=== PATIENT | female | born 1955 | race Hispanic/Latino ===

== ENCOUNTER 2018-10-23 19:48 | Observation (INO) | payer OTHER ==
[2018-10-23 20:14] VITALS: BMI 22.3
[2018-10-23 20:45] LABS: Urine Appearance CLEAR; Urine Bilirubin NEGATIVE (NEG); Urine Blood NEGATIVE (NEG); Urine Color YELLOW; Urine Glucose NEGATIVE (NEG); Urine Microscopic Reflex ORDER UMIC; Urine Protein NEGATIVE (NEG); Urine Specific Gravity 1.015 (1.005-1.030); Urine Urobilinogen 0.2 mg/dL (0.2-1.0)
[2018-10-23 20:54] LABS: Urine Bacteria NONE SEEN /HPF (<20); Urine Culture Reflex Order REFLEXED; Urine RBC NONE SEEN /HPF (NONE SEEN)
--- NOTE | 2018-10-23 21:06 | RAD REPORT ---
EXAM DESCRIPTION: Lillian Barone (2 Views)10/23/2018 9:00 pm CLINICAL HISTORY: Chest pain COMPARISON: 2007 FINDINGS: The lungs appear clear of acute infiltrate. The heart is normal size IMPRESSION: No acute abnormalities displayed
[2018-10-23 21:26] LABS: Absolute Monocytes 0.8 K/uL (0.1-1.3); Absolute Neutrophil 5.6 K/uL (1.8-8.0); Basophils % 0.7 % (0-1.3); Eosinophils % 0.9 % (0-4.4); Hematocrit 37.2 % (36.0-45.0); Lymphocytes % 23.4 % (15.3-44.8); Monocytes % 9.1 % (3.3-12.3); RBC Red Blood Cell Count 3.98 M/uL (3.86-4.86)
[2018-10-23 21:45] LABS: BUN Blood Urea Nitrogen 19 mg/dL (7-18); Bicarbonate 28 mmol/L (21-32); CKMB Creatine Kinase MB 1.3 ng/mL (0.3-3.6); Creatine Phosphokinase 55 U/L (26-192); Glucose Level 103 mg/dL (74-106); Magnesium 2.3 mg/dL (1.8-2.4); Potassium 3.5 mmol/L (3.5-5.1); Sodium Level 144 mmol/L (136-145); Troponin I < 0.02 ng/mL (0.0-0.045)
[2018-10-23] MEDS ORDERED: ASPIRIN EC 81 MG TAB PO ONE (23:00)
[2018-10-24] MEDS ORDERED: NA CHLORIDE 0.9% 250 ML ONE (02:48)
[2018-10-24] MEDS ORDERED: KCL 20 MEQ/100 mL IVPB 20 MEQ/100 ML BAG IV SCH (03:00)
[2018-10-24 05:20] VITALS: O2SAT 98
--- NOTE | 2018-10-24 08:05 | HP ---
Date of Admission: 10/23/2018 Chief Complaint: Chest pain and left arm pain. History Of Present Illness: This is a 63-year-old female patient who came in to see me today with co mplaints of some chest pain and left arm pain. The patient has gastroesophageal reflux disease as we ll as some neuropathy problem and she has appointment to see Dr. Castilol next week on Sunday, and she has seen him before and this will be followup appointment. She also has appointment to see neurologbhupendra abdi next month. Meanwhile, she comes to our office today and reports that she is having this vague ch est discomfort, it happened once and this is in left upper anterior chest. She is also describing kamara ving some achiness in her left arm and left forearm. This is intermittent and this achiness started after she saw me on October 17, 2018. She is feeling weak and tired and feels like she gets exhaust ed with any activity. After I evaluated her, decision was made to admit her to the hospital. When s he saw me on October 17, 2018, at that time, she informed me that medication that I gave her which w as Carafate to help with her acid reflux problems, she stopped taking it because at one time she had 1 episode of vomiting and she was just having this generalized weakness feeling and she thought that that was a side effect of this medication, so she stopped taking it. Since she saw me on October 17, she has decided to get back on that medication and she feels like the medication has started to h elp her with her acid reflux feeling. She had also stopped her levothyroxine because of her generali zed weakness feeling that she has been having lately and this is something that she decided to do kenzie t on basis of what her daughter told her after her daughter read up something on [employer] and decided t hat her weakness was because of levothyroxine. So, once again, after I talked to her on September t, she has restarted her levothyroxine. She had CBC, chemistry profile, B12, folic acid, TSH, all th e blood work was done on an outpatient basis on 10/18/2018, including lipid profile and her potassium was slightly low at 3.4, TSH slightly high at 5.65. Otherwise, the rest of the blood work was unrem arkable. Allergies: TO CODEINE CAUSING PALPITATION; OMEPRAZOLE CAUSING WEAKNESS AND NUMBNESS; PENICILLIN, DET AILS UNKNOWN. Medications: Atorvastatin 20 mg daily; levothyroxine 100 mcg daily; losartan/HCTZ 100/12.5 p.o. kenisha y; ranitidine 150 mg 2 times a day; vitamin B12 1000 mcg daily, and as of today, I have told her to t lina 1000 mcg every other day because her vitamin B12 level was elevated on last blood work; vitamin D 3 5000 units daily; zolpidem 10 mg at bedtime, she takes half to one tablet. Review of Systems: Cardiovascular: As mentioned above. Constitutional: As mentioned above. All other systems reviewed and negative. Past Medical History: Significant for hypertension, hypothyroidism, hyperlipidemia, peripheral neuro asha, gastroesophageal reflux disease. Past Surgical History: Appendectomy. Family History: Significant for Alzheimer disease, cerebellar aneurysm, diabetes, hypertension, rheu matoid arthritis, and depression. Social History: Negative for smoking, alcohol use rarely. Physical Examination: Vital Signs: When I saw her today at office, height 61 inches, weight 119 pounds, blood pressure 128 /71, pulse 65, respiratory rate 15, temperature 97.8. General: Awake, alert, oriented, not in distress. HEENT: Head atraumatic, normocephalic. Conjunctivae nonerythematous. Sclerae white. Mouth, no thr ush or edema noted. Ears/Nose, no mass, lesion, discharge noted. Neck: Supple. No JVD, lymph nodes, bruit, thyromegaly noted. Lungs: Bilateral good equal air entry. Clear to auscultation. No rhonchi. No rales. Heart: Normal heart sounds, no murmur or gallop. Abdomen: Soft, bowel sounds normal. No guarding, rigidity, tenderness, mass, hepatosplenomegaly, dis tention, or bruit noted. Extremities: No leg edema. No calf tenderness. Skin: No rash, ulcer, cellulitis. Lymphatics: No lymph node enlargement in neck, supraclavicular, infraclavicular region. Neuro: No focal neurological deficit. Chest: Unremarkable. External Genitalia: Deferred. Rectal: Deferred. Laboratory Data: Chest x-ray, no acute cardiopulmonary changes. Urinalysis: Trace esterase, 5-10 w bc's, bacteria not seen. Sodium 144, potassium 3.5, chloride 107, bicarb 28, BUN 19, creatinine 0.79 , glucose 103, magnesium 2.3. Troponin less than 0.02. White count 8.6, hemoglobin 13, platelets 22 2. Impression: 1.Chest pain. 2.Hypertension. 3.Hyperlipidemia. 4.Gastroesophageal reflux disease. 5.Peripheral neuropathy. Plan: Admit the patient to hospital for further evaluation and management of this problem. The patricia ent is appropriate for observation. We will go ahead and continue her home medications. Tomorrow, morris barry will get an echocardiogram and a stress test and depending on those results, we will decide further plan of management. Details were discussed with her and her who was at the office today wit h her. STEPHANY/MODL Voice ID: [id number]
[2018-10-24] MEDS ORDERED: REGADENOSON 0.4 MG/5 ML SYR IV ONE (08:15)
--- NOTE | 2018-10-24 08:44 | EKG ---
Test Date: 2018-10-23 Test Time: 22:18:58 Veneer Puller: RT MEASUREMENT RESULTS: Intervals: Rate: 56 NV: 172 QRSD: 92 QT: 422 QTc: 407 Bowden: P: 25 NV: 172 QRS: 75 T: 30 INTERPRETIVE STATEMENTS: Sinus bradycardia Otherwise normal ECG Compared to ECG 08/26/2008 14:29:58 No significant changes Electronically Signed On 10-24-18 08:43:46 ELECTRONICS HARDWARE DESIGN ENGINEER by Josue Miner
[2018-10-24] MEDS ORDERED: ASPIRIN EC 81 MG TAB PO SCH (09:00)
[2018-10-24] MEDS ORDERED: ATORVASTATIN CALCIUM PO SCH (09:00)
[2018-10-24] MEDS ORDERED: RANITIDINE PO SCH (09:00)
[2018-10-24] MEDS ORDERED: HOME MED 1 EA UNK (Losartan/Hydrochlorothiazide [Losartan-Hctz 100-12.5 Mg Tab] 1 EACH) PO SCH (09:00)
--- NOTE | 2018-10-24 13:17 | RAD REPORT ---
EXAM DESCRIPTION: NM - Rest Stress Cardiac Imaging - 10/24/2018 1:04 pm CLINICAL HISTORY: Chest pain COMPARISON: None. TECHNIQUE: The patient was administered approximately 10 mCi of Tc 99m Sestamibi prior to resting SP ECT imaging of the heart. The patient was then administered approximately 30 mCi of Tc 99m Sestamibi following exercise or pharmacologic stress. Multiplanar SPECT images were reviewed. FINDINGS: The end diastolic volume is 74 ml, the end systolic volume is 25 ml, and the ejection frac tion is 66 %. Diminished activity is present on stress imaging in the anterior wall mid in apex portion. This is ab sent or less pronounced on rest imaging. Decreased activity extends minimally into the lateral wall n ear the apex. No other area of scarring or possible stress ischemia identified. IMPRESSION: Anterior wall stress ischemia findings are present. Ventricular volumes and ejection fraction remain in normal range.
--- NOTE | 2018-10-24 14:14 | ECHO ---
HEIGHT: 5 ft 1 in WEIGHT: 118 lb 1.6 oz DATE OF STUDY: 10/24/[address]: Farhad Choi MD 2-DIMENSIONAL: YES M.MODE: YES DOPPLER: YES COLOR FLOW: YES TDS: PORTABLE: DEFINITY: BUBBLE STUDY: DIAGNOSIS: CHEST PAIN CARDIAC HISTORY: CATHERIZATION: SURGERY: PROSTHETIC VALVE: PACEMAKER: MEASUREMENTS (cm) DIASTOLIC (NORMALS) SYSTOLIC (NORMALS) IVSd 0.7 (0.6-1.2) LA Diam 3.2 (1.9-4.0) LVEF 79% LVIDd 4.2 (3.5-5.7) LVIDs 2.2 (2.0-3.5) %FS 47% LVPWd 0.8 (0.6-1.2) Ao Diam 2.2 (2.0-3.7) 2 DIMENSIONAL ASSESSMENT: RIGHT ATRIUM: NORMAL LEFT ATRIUM: NORMAL RIGHT VENTRICLE: NORMAL LEFT VENTRICLE: NORMAL TRICUSPID VALVE: NORMAL MITRAL VALVE: NORMAL PULMONIC VALVE: NORMAL AORTIC VALVE: NORMAL PERICARDIAL EFFUSION: NORMAL AORTIC ROOT: NORMAL LEFT VENTRICULAR WALL MOTION: NORMAL. DOPPLER/COLOR FLOW: NORMAL. COMMENTS: NORMAL 2D ECHOCARDIOGRAM WITH DOPPLER. NO WALL MOTION ABNORMALITIES. NO EFFUSION. TECHNOLOGIST: VICENTE BARKSDALE
--- NOTE | 2018-10-24 14:53 | TREADPHA ---
DX: CHEST PAIN Date of Study: 10/24/18 Ht: 5 1 Wt: 118 lb 1.6 oz Consulting Physician: BUNNY MEDICATIONS: ASPIRIN HISTORY: 63 YEAR OLD FEMALE WITH COMPLAINTS OF CHEST PAIN. HISTORY: HYPERLIPIDEMIA, HYPERTYHYROID, HYPERTENSION, NON SMOKER, OCCASIONAL DRINKER. PHYSICIAL EXAMINATION: RESTING B.P.: 128/61 RESTING H.R.: 55 RESTING EKG: NORMAL SINUS RHYTHM, NORMAL ST PROTOCOL: LEXISCAN EXERCISE TIME: 3:30 B.P. AT PEAK STRESS: 126/60 IMPRESSION: LEXISCAN INJECTED, FOLLOWED BY CARDIOLITE PER PROTOCOL, SEE NUCLEAR MEDICINE REPORT. NO SUPRA VENTRICULAR TACHYCARDIA, NO VENTRICULAR TACHYCARDIA, NO PREMATURE ATRIAL COMPLEXES, NO PREMATURE VENTRICULAR COMPLEXES. PATIENT REPORTED, NO CHEST PAIN, OR TIGHTNESS THROUGHOUT PROCEDURE.
--- NOTE | 2018-10-24 15:44 | RAD REPORT ---
EXAM DESCRIPTION: CT - Chest For Pe Angio - 10/24/2018 3:25 pm CLINICAL HISTORY: Chest pain, shortness of breath COMPARISON: Chest film October 23 TECHNIQUE: Dynamically enhanced 3 mm thick images of the chest were obtained during administration o f approximately 150mL Isovue 370 IV contrast. Coronal and oblique MIP reconstruction images were gene rated and reviewed. Exam utilizes a protocol to evaluate the pulmonary arterial tree. All CT scans are performed using dose optimization technique as appropriate and may include automated exposure control or mA/KV adjustment according to patient size. FINDINGS: No pulmonary emboli are identified. The aorta as imaged shows no acute or suspicious finding. No pericardial thickening or effusion. Hear t size normal range. No infiltrate or mass in the lung parenchyma. No pleural effusion or pleural thickening. No bronchial wall thickening or endobronchial lesion. No mediastinal or hilar suspicious masses. No chest wall masses or abnormal axillary lymphadenopathy. IMPRESSION: No pulmonary emboli identified. No other significant or suspicious findings.
--- NOTE | 2018-10-24 16:37 | RAD REPORT ---
EXAM DESCRIPTION: MRI - C Spine Wo Cont - 10/24/2018 3:54 pm CLINICAL HISTORY: Neck pain radiating to the left upper extremity COMPARISON: None. TECHNIQUE: Sagittal T1-weighted, T2-weighted and T2-STIR sequences were obtained as well as T2 medic sequence. FINDINGS: Cervical bodies are normal in height. No marrow edema or marrow replacing process. There i s approximately 2.5 mm retrolisthesis C4 on C5. No paraspinal mass. Cerebellar tonsils and mid-line skull base show no suspicious finding. No significant finding at the C1 and C2 levels. C2-3 level: No significant findings. C3-4 level: No significant findings. C4-5 level: Prominent disc bulge and endplate spurring extending to the central canal. Anterior conto ur the cord is flattened. Midline canal diameter is 10 mm. Mild bilateral foraminal encroachment pres ent. C5-6 level: No significant findings. C6-7 level: No significant findings. C7-T1 level: No significant findings. No cord signal abnormality or expansile change. No flattening other than at C4-5. IMPRESSION: Prominent C4-5 cervical spondylosis changes flattening the anterior contour the cord. Ca nal is mild to borderline stenotic at 10 mm. Mild bilateral C4-5 foraminal stenosis. No cord signal abnormality.
[2018-10-24 16:50] VITALS: TEMP 98.6
[2018-10-24 20:47] VITALS: BP 133/64
[2018-10-24] MEDS ORDERED: ZOLPIDEM TARTRATE PO SCH (21:00)
[2018-10-25] MEDS ORDERED: HOME MED 1 EA UNK (Levothyroxine Sodium [Levothyroxine Sodium] 1 TAB) PO SCH (06:30)
--- NOTE | 2018-10-25 19:09 | DS ---
Date of Discharge: 10/24/2018 Disposition: Discharged to go home. Physical Examination: HEENT: Unremarkable. Lungs: Clear to auscultation. Heart: Sounds normal. Abdomen: Soft. Bowel sounds normal. No guarding, rigidity, tenderness, or distention. Extremities: No leg edema. Discharge Medications And Instructions: 1.Continue all prior home medications. 2.Take aspirin 81 mg p.o. daily. 3.Metoprolol-XL 25 mg p.o. daily. 4.Follow up at my office per scheduled appointment. Hospital Course: A 63-year-old female patient admitted to the hospital with chest pain and left arm pain. Please see dictated H and P for more information. After patient was evaluated at office, she was admitted to the hospital. Cardiac enzyme was negative. CBC chemistry was unremarkable. Cardiol ogy consultation was obtained from Dr. Miner. We did obtain echocardiogram today, which was negati ve. Lexiscan stress test was abnormal indicating anterior wall ischemia type of changes. CAT scan o f the chest per PE protocol was negative and MRI of cervical spine without contrast showed significan t cervical spinal stenosis problem with evidence of flattening of the anterior part of the spinal cor d. I did talk to Dr. Miner about the stress test results. The patient will need cardiac cath, but Dr. Miner informed me that our cardiac laboratory associate is closed tomorrow and earliest that we can do car diac cath is next week on Sunday. Dr. Miner has released her to go home with outpatient cardiac ca th to be done sometime beginning of next week, Sunday or Sunday and the patient is medically stable for discharge. I have gone back to hospital to discuss with the patient as well as the patient's sendy whitaker, who was in the room. All these test results were discussed and we talked about abnormal stres s test and what it means, which is either it is a false-positive stress test or actually she has unde rlying coronary artery disease, which we will not know until we do cardiac cath. So, definitely next recommended step is to do cardiac cath for her to find out if she actually has coronary artery disea se or not and if she does, then we will need to address it depending on the cardiac cath results, but at the same time, it could be false-positive stress test and she may not have underlying coronary ar darinel disease. All these details were discussed with her. She feels comfortable going home. I have advised her not to do any strenuous activity or exercise and until cardiac cath is done, she should t lina it easy, take aspirin 81 mg daily and metoprolol 25 mg daily as prescribed and if her symptoms ch anges, then to come to emergency room. All these details were discussed with the patient and patient 's daughter. The patient feels comfortable going home, she rather wait at home instead of waiting he re in the hospital until her cardiac cath is done and Dr. Miner and myself, we both feel comfortabl e doing so. So, the patient will be discharged to go home in stable condition. Final Diagnoses: 1.Chest pain. 2.Cervical spinal stenosis. 3.Hypertension. 4.Hyperlipidemia. 5.Peripheral neuropathy. 6.Gastroesophageal reflux disease. STEPHANY/MODL Voice ID: [id number] Report ID: [id number]
--- NOTE | 2018-10-26 03:51 | CON ---
Date of Consultation: 10/24/2018 The patient was admitted to Dr. Choi's service on 10/23/2018. I saw the patient on 10/24/2018. Reason For Consultation: Chest pain. History Of Present Illness: Ms. Lainez is a 63-year-old woman who has a history of hypertension, dy slipidemia, gastroesophageal reflux disease, and hypothyroidism. She came in with left-sided chest p ain, anterior wall, radiating to the left arm. Symptoms have been going on intermittently for about 2 days. Symptoms last 1 to 2 hours. No associated symptoms with nausea or vomiting or diaphoresis. Has been having some shortness of breath with exertion. Denied orthopnea, pedal edema, palpitation, or syncope. So far, chest x-ray and troponin and EKGs are unremarkable. Past Medical History: As stated above. Allergies: SHE IS ALLERGIC TO CODEINE. Review of Systems: Negative. Social History: Negative for tobacco. Family History: Positive for heart disease. Medications: Include losartan with hydrochlorothiazide, Lipitor, Zantac, insulin, and Synthroid. Physical Examination: General: Ms. Lainez is very pleasant, in no acute distress. Vital Signs: Stable. Afebrile, sinus rhythm. HEENT: Negative. Neck: Supple without any bruit, lymphadenopathy, JVD, or thyromegaly. Chest: Clear to auscultation and percussion. Cardiac: Revealed a regular rhythm and rate. No murmurs, gallops, or rubs. Abdomen: Benign. Extremities: Revealed no clubbing, cyanosis, or edema. Pulses were present bilaterally and distally in both lower extremities. Neurological: She was nonfocal. Skin: Dry and intact. Diagnostic Data: As stated earlier. Impression And Plan: Ms. Lainez is a patient with multiple risk factors for heart disease including her age, blood pressure, dyslipidemia, family history. Her symptoms are concerning. In that, they radiate to the left arm. She has ruled out for a myocardial infarction. An echocardiogram is pendin g, and a Lexiscan is pending. We will see what these show prior to making final decisions. For now, her blood pressure, her cholesterol, her gastroesophageal reflux disease, and hypothyroidism are wel l controlled. The case was discussed with Dr. Choi. GILLES/SANDEEP Voice ID: [id number] Report ID: [id number]
== END 2018-10-24 20:14 | disposition home or self-care (01) ==
LOC: 2ND 19:48
PROVIDERS: ADMIT Internal Medicine; ATTEND Internal Medicine
DX: R07.9 Chest pain, unspecified (principal); M48.02 Spinal stenosis, cervical region; I10 Essential (primary) hypertension; E78.5 Hyperlipidemia, unspecified; G62.9 Polyneuropathy, unspecified; K21.9 Gastro-esophageal reflux disease without esophagitis; Z88.0 Allergy status to penicillin
CPT/HCPCS: 36415; 71046; 71275; 72141; 78452; 80048; 81003; 81015; 82550; 82553; 82962; 83735; 84484; 85025; 87086; 87088; 93005; 93017; 93306; A9500; G0378; J2785; Q9967

== ENCOUNTER 2018-10-29 08:22 | Day surgery (SDC) | payer OTHER ==
[2018-10-29] MEDS ORDERED: NA CHLORIDE 0.9% 500 ML ONE (08:43)
[2018-10-29] MEDS ORDERED: HEPA 1000U/500MLS 1,000 UNIT/500 ML BAG IV ONE (09:36)
[2018-10-29] MEDS ORDERED: ATROPINE SULF 1 MG/10 ML SYR IV ONE (09:37)
[2018-10-29] MEDS ORDERED: MIDAZOLAM HCL 2 MG/2 ML INJ ONE ×2 (09:37→10:19)
[2018-10-29] MEDS ORDERED: NA CHLORIDE 0.9% 0 ML ONE (09:37)
[2018-10-29] MEDS ORDERED: FENTANYL CITR 100 MCG/2 ML ONE (09:37)
[2018-10-29 11:04] VITALS: TEMP 97.3
[2018-10-29 11:57] VITALS: O2SAT 100
[2018-10-29 12:41] VITALS: BP 111/51
--- NOTE | 2018-10-29 21:13 | OP ---
Surgeon: Josue Miner MD Adoption Coordinator: Burton Allison. The patient is a patient of Dr. Choi who was in the hospital last week for atypical chest pain and a positive Cardiolite, was sent home, set up as an outpatient for a heart catheterization. Procedure: The procedure done today was left heart catheterization with selective coronary artery. Indication: Chest pain and abnormal Cardiolite. Description Of Procedure: The patient was prepped and draped in the routine sterile fashion, given 4 mg of Versed for IV sedation. Selective coronary artery left heart catheterization was done. She w as found to have normal coronaries that were small. She was left dominant. No focal stenosis. A 6- Nepalese sheath and catheters were used. A 6-Nepalese sheath was introduced in the right common femoral artery successfully. Angio-Seal was used to close the case. Total conscious sedation was 30 minutes. Complications: None. Estimated Blood Loss: 5 mL. Postoperative Diagnoses: 1.Normal coronaries. 2.Chest pain. 3.Positive Cardiolite. Plan: To continue medical therapy. GILLES/SANDEEP Voice ID: [id number] Report ID: [id number]
== END 2018-10-29 12:28 | disposition home or self-care (01) ==
LOC: CCL 08:22
DX: R07.89 Other chest pain (principal); R94.39 Abnormal result of other cardiovascular function study; Z82.49 Family history of ischemic heart disease and other diseases of the circulatory system; E03.9 Hypothyroidism, unspecified; E78.5 Hyperlipidemia, unspecified; I10 Essential (primary) hypertension; K21.9 Gastro-esophageal reflux disease without esophagitis; Z79.899 Other long term (current) drug therapy
CPT/HCPCS: 93454; C1760; C1893; J0583; J2250; J3010